=== PATIENT | male | born 1980 | race Caucasian/White ===

== ENCOUNTER 2020-05-09 21:41 | Emergency (ER) | payer BC ==
[~2020-05-09] VITALS: Ht 182.9 cm; Wt 178.3 kg
[~2020-05-09 21:41] MED LIST: AMLODIPINE BESY10 MG; BENAZEPRIL HCL10 MG; EFFEXOR75 MG; WELLBUTRIN XL150 MG PO; XANAX XR2 MG; ZIAC 10-6.25 M1 EACH; [UNRECOGNIZED DRUG - REMARK]
[2020-05-09] MEDS ORDERED: METFORMIN HCL500 M3 PO (21:51)
[2020-05-09] MEDS ORDERED: LIPITOR10 MG PO (21:51)
[2020-05-09] MEDS ORDERED: CARVEDILOL25 MG PO (21:51)
[2020-05-09] MEDS ORDERED: LISINOPRIL (21:52)
[2020-05-09] MEDS ORDERED: CYMBALTA60 MG PO (21:53)
[2020-05-09] MEDS ORDERED: DOXYCYCLINE 10100 M2 PO (23:30)
[2020-05-09] MEDS ORDERED: CLEOCIN HCL300 MG PO (23:30)
[2020-05-09 23:41] VITALS: BP 158/79
== END 2020-05-09 23:41 | disposition home or self-care (01) ==
LOC: M.ERS 21:41
DX: S01.112A Laceration without foreign body of left eyelid and periocular area, initial encounter (principal); E78.00 Pure hypercholesterolemia, unspecified; W54.0XXA Bitten by dog, initial encounter; Y93.89 Activity, other specified; Y92.89 Other specified places as the place of occurrence of the external cause; Y99.8 Other external cause status